=== PATIENT | female | born 1985 | race Caucasian/White ===

== ENCOUNTER 2023-06-23 23:27 | Emergency (ER) | payer BC ==
[~2023-06-23] VITALS: Ht 154.9 cm; Wt 48.1 kg
[2023-06-23 23:39] VITALS: O2SAT 0
--- NOTE | 2023-06-23 23:50 | NUR ---
PT AMB TO [facility] 2A WITH C/O ABD PAIN, N/V.
[2023-06-24] MEDS ORDERED: IV NORMAL SALINE 1000 ML BAG IV ONE
[2023-06-24] MEDS ORDERED: METOCLOPRAMIDE HCL 10 MG/2 ML VIAL IV ONE
[2023-06-24 00:16] LABS: HEMATOCRIT 38.5 % (31.2-41.9); MEAN CORPUSCULAR HEMOGLOBIN 28.1 uug (24.7-32.8); MEAN CORPUSCULAR VOLUME 85.4 fL (75.5-95.3); PLATELET COUNT (AUTO) 193 K/uL (179-408)
[2023-06-24] MEDS ORDERED: FAMOTIDINE. 20 MG/2 ML VIAL IV ONE ×2 (00:27)
[2023-06-24 00:32] LABS: CREATININE 0.8 mg/dL (0.6-1.3); POTASSIUM 3.9 mmol/L (3.5-5.1)
[2023-06-24 00:37] LABS: BILIRUBIN,DIRECT 0.1 mg/dL (0.0-0.2); BILIRUBIN,TOTAL 0.2 mg/dL (0.2-1.0); TOTAL PROTEIN, SERUM 7.9 g/dL (6.4-8.2)
--- NOTE | 2023-06-24 01:15 | NUR ---
PT WAS GIVEN A PO CHALLENGE WITH NO N/V.
--- NOTE | 2023-06-24 02:18 | NUR ---
IV removed. Catheter intact and site benign. Pressure and 4x4 gauze applied to site. No bleeding noted.
--- NOTE | 2023-06-24 02:18 | NUR ---
Patient discharged to home in stable condition. Written and verbal after care instructions given. Patient verbalizes understanding of instructions. Stressed follow up or return to ER for worsening s/s.
== END 2023-06-24 02:19 | disposition home or self-care (01) ==
LOC: ER 23:33
DX: K29.70 Gastritis, unspecified, without bleeding (principal)
CPT/HCPCS: 99283; 96374; 96361; 80076; 80048; 83690; 85025; J3490; J7040; 36415; A4663

== ENCOUNTER 2023-06-26 20:19 | Emergency (ER) | payer BC ==
[~2023-06-26] VITALS: Ht 152.4 cm; Wt 52.2 kg
[2023-06-26] MEDS ORDERED: METOCLOPRAMIDE HCL 10 MG/2 ML VIAL ONE (20:44)
[2023-06-26] MEDS ORDERED: FAMOTIDINE. 20 MG/2 ML VIAL IV ONE ×2 (20:44→20:45)
[2023-06-26] MEDS ORDERED: METOCLOPRAMIDE HCL 10 MG/2 ML VIAL IV ONE (20:45)
[2023-06-26] MEDS ORDERED: IV NORMAL SALINE 1000 ML BAG IV ONE (20:45)
[2023-06-26 20:47] LABS: BASOPHILS # (AUTO) 0.3 K/UL (0.0-0.2); BASOPHILS % (AUTO) 4.9 % (0.0-2.0); EOSINOPHILS # (AUTO) 0.1 K/uL (0.0-0.7); EOSINOPHILS % (AUTO) 1.8 % (0.0-7.0); HEMATOCRIT 37.3 % (31.2-41.9); HEMOGLOBIN 12.2 g/dL (10.9-14.3); LYMPHOCYTES # (AUTO) 0.8 K/uL (0.8-4.8); LYMPHOCYTES % (AUTO) 12.9 % (20.5-51.5); MEAN CORPUSCULAR HEMOGLOBIN 27.9 uug (24.7-32.8); MEAN CORPUSCULAR HGB CONC 33 g/dL (32.3-35.6); MEAN CORPUSCULAR VOLUME 85.5 fL (75.5-95.3); MONOCYTES # (AUTO) 0.3 K/uL (0.1-1.30); MONOCYTES % (AUTO) 4.8 % (0.0-11.0); NEUTROPHILS # (AUTO) 4.6 K/uL (1.8-8.9); NEUTROPHILS % (AUTO) 75.6 % (38.5-71.5); PLATELET COUNT (AUTO) 179 K/uL (179-408); RED BLOOD CELL COUNT(AUTO) 4.37 MIL/uL (3.63-4.92); RED CELL DISTRIBUTION WIDTH 13.7 % (12.3-17.7); WHITE BLOOD COUNT (AUTO) 6.1 K/uL (3.8-11.8)
[2023-06-26 20:50] LABS: DIFFERENTIAL COMMENT 1
[2023-06-26 20:55] LABS: CALCIUM 8.7 mg/dL (8.5-10.1); CREATININE 0.6 mg/dL (0.6-1.3); POTASSIUM 3.2 mmol/L (3.5-5.1)
[2023-06-26 21:00] LABS: BILIRUBIN,DIRECT 0.1 mg/dL (0.0-0.2); BILIRUBIN,TOTAL 0.3 mg/dL (0.2-1.0); TOTAL PROTEIN, SERUM 7.6 g/dL (6.4-8.2)
[2023-06-26] MEDS ORDERED: POTASSIUM CHLORIDE 20 MEQ TAB.PRT.SR ONE (21:26)
[2023-06-26] MEDS ORDERED: POTASSIUM CHLORIDE 20 MEQ TAB.PRT.SR PO ONE (21:30)
[2023-06-26] MEDS ORDERED: POTASSIUM CHLORIDE 20 MEQ in IV D5/ 0.9% NACL 1,000 ML IV ONE (21:30)
[2023-06-26] MEDS ORDERED: IV DEXTROSE 5%-0.9%NS+20MeqKCL 1,000 ML IV ONE (21:57)
[2023-06-26] MEDS ORDERED: ACETAMINOPHEN 325 MG TABLET PO ONE (22:00)
[2023-06-26] MEDS ORDERED: ACETAMINOPHEN 325 MG TABLET ONE (22:01)
[2023-06-26] MEDS ORDERED: METO-295 PO (23:16)
[2023-06-26] MEDS ORDERED: POTA20TA83 PO (23:16)
[2023-06-26 23:39] VITALS: BP 99/56; O2SAT 100
== END 2023-06-26 23:39 | disposition home or self-care (01) ==
LOC: ER 20:28
DX: K52.9 Noninfective gastroenteritis and colitis, unspecified (principal); E87.6 Hypokalemia; Z88.8 Allergy status to other drugs, medicaments and biological substances; Z79.899 Other long term (current) drug therapy
CPT/HCPCS: 99284; 96365; 96375; 96361; 96366; 80076; 80048; 83690; 83735; 85025; 36415; J3490 ×2; J2765; J7040; A4663

== ENCOUNTER 2025-05-24 18:36 | Emergency (ER) | payer BC, MEDICAID ==
[~2025-05-24] VITALS: Ht 152.4 cm; Wt 52.2 kg
[~2025-05-24 18:36] MED LIST: METO-295 PO; POTA20TA83 PO
[2025-05-24 19:20] LABS: BASOPHILS % (AUTO) 0.7 % (0.0-2.0); EOSINOPHILS # (AUTO) 0.1 K/uL (0.0-0.7); EOSINOPHILS % (AUTO) 1.8 % (0.0-7.0); HEMATOCRIT 37.6 % (31.2-41.9); HEMOGLOBIN 12.4 g/dL (10.9-14.3); LYMPHOCYTES # (AUTO) 1.2 K/uL (0.8-4.8); LYMPHOCYTES % (AUTO) 21.5 % (20.5-51.5); MEAN CORPUSCULAR HEMOGLOBIN 27.7 uug (24.7-32.8); MEAN CORPUSCULAR HGB CONC 33 g/dL (32.3-35.6); MEAN CORPUSCULAR VOLUME 83.9 fL (75.5-95.3); MONOCYTES # (AUTO) 0.4 K/uL (0.1-1.30); MONOCYTES % (AUTO) 7.4 % (0.0-11.0); NEUTROPHILS % (AUTO) 68.6 % (38.5-71.5); PLATELET COUNT (AUTO) 154 K/uL (179-408); RED BLOOD CELL COUNT(AUTO) 4.47 MIL/uL (3.63-4.92); RED CELL DISTRIBUTION WIDTH 13.7 % (12.3-17.7); WHITE BLOOD COUNT (AUTO) 5.8 K/uL (3.8-11.8)
[2025-05-24 19:22] LABS: DIFFERENTIAL COMMENT 1
[2025-05-24 19:25] LABS: CALCIUM 9.7 mg/dL (8.5-10.1); CARBON DIOXIDE 26 mmol/L (21-32); CHLORIDE 105 mmol/L (98-107); CREATININE 0.5 mg/dL (0.6-1.3); GLUCOSE 103 mg/dL (74-106); POTASSIUM 3.5 mmol/L (3.5-5.1); SODIUM SERUM 142 mmol/L (136-145); UREA NITROGEN, BLOOD 13 mg/dL (7-18)
[2025-05-24 19:31] LABS: ALANINE AMINOTRANSFERASE 23 U/L (14-59); ALBUMIN 3.9 g/dL (3.4-5.0); ALKALINE PHOSPHATASE 45 U/L (50-136); ASPARTATE AMINOTRANSFERASE 13 U/L (15-37); BILIRUBIN,DIRECT 0.1 mg/dL (0.0-0.2); BILIRUBIN,TOTAL 0.4 mg/dL (0.2-1.0); LIPASE 32 U/L (16-77); TOTAL PROTEIN, SERUM 7.6 g/dL (6.4-8.2)
[2025-05-24] MEDS ORDERED: ONDANSETRON 4 MG/2 ML VIAL ONE (19:41)
[2025-05-24] MEDS: IV NORMAL SALINE 1000 ML BAG IV ONE (19:50)
[2025-05-24] MEDS: ONDANSETRON 4 MG/2 ML VIAL IV ONE (19:51)
[2025-05-24 20:13] LABS: *BILIRUBIN,URIN NEGATIVE (NEGATIVE); *BLOOD, URINE 1+ (NEGATIVE); *CLARITY,URINE CLEAR (CLEAR); *COLOR,URINE YELLOW (YELLOW); *KETONES,URINE NEGATIVE (NEGATIVE); *PROTEIN,URINE NEGATIVE (NEGATIVE); *UROBILINOGEN,URINE 0.2 E.U./dl (NORMAL); LEUKOCYTE ESTERASE ,URINE NEGATIVE (NEGATIVE); NITRITE, URINE NEGATIVE (NEGATIVE); PH,URINE 5.5 (5.0-8.0); UGLUCOSE NEGATIVE (NEGATIVE)
[2025-05-24 20:14] LABS: *URINE HCG, QUAL NEGATIVE (NEGATIVE)
[2025-05-24 20:27] LABS: BACTERIA,URINE FEW /HPF (NONE SEEN); SQUAMOUS EPITHELIAL CELL,UR MODERATE /HPF (NONE SEEN)
[2025-05-24] MEDS ORDERED: KETOROLAC TROMETHAMINE 15 MG INJ IVP ONE (21:15)
[2025-05-24] MEDS ORDERED: MORPHINE SULFATE 4 MG/1 ML DISP.SYRIN IV ONE (21:15)
[2025-05-24] MEDS ORDERED: DICY10CA13 PO (21:41)
[2025-05-24 21:48] VITALS: BP 118/74; O2SAT 98
== END 2025-05-24 21:48 | disposition home or self-care (01) ==
LOC: ER 18:36
DX: R10.32 Left lower quadrant pain (principal); R11.0 Nausea; R19.7 Diarrhea, unspecified; Z79.899 Other long term (current) drug therapy; Z88.7 Allergy status to serum and vaccine
CPT/HCPCS: 99285; 74176; 96374; 96361; 80076; 80048; 81001; 84703; 83690; 85025; 36415; J2405; J7040; A4606; A4663